=== PATIENT | male | born 1970 | race Caucasian/White ===

== ENCOUNTER → 2017-06-04 | Outpatient (REF) | LOC: M SMT 12:51 | DX: M54.5 Low back pain (principal) ==

== ENCOUNTER → 2017-12-03 | Outpatient (REF) | LOC: M SMT 10:51 | DX: M50.30 Other cervical disc degeneration, unspecified cervical region (principal); M25.78 Osteophyte, vertebrae ==

== ENCOUNTER → 2018-04-08 | Outpatient (REF) ==
--- NOTE | 2018-04-09 02:07 | REP ---
Clinical: Pain . Technique: AP, lateral, bilateral oblique views left ankle . Findings: No acute fracture or dislocation. Skeletal structures and joint spaces are intact and normal. Ankle mortise appears stable. No subcutaneous emphysema or radiodense foreign body. Impression: Normal age-appropriate left ankle radiograph series. Electronically Signed by Ed Flor MD 04/09/2018 01:59 A
--- NOTE | 2018-04-09 02:18 | REP ---
Clinical: Pain and disability. Technique: AP, lateral, coned-down views of the lumbar spine. Findings: Three views of the lumbosacral spine demonstrate satisfactory alignment and lordosis without acute fracture / compression injury or subluxation. Age-related changes include subtle endplate sclerosis with minimal hypertrophic facet changes. Disc spaces appear maintained. Neural foramen appear patent. Impression: Generalized age-related changes. No acute fracture / compression injury or subluxation. Electronically Signed by Ed Flor MD 04/09/2018 02:08 A
== END ==
LOC: M SMT 12:59
PROVIDERS: ATTEND Internal Medicine
DX: Z00.00 Encounter for general adult medical examination without abnormal findings (principal)